=== PATIENT | female | born 1935 | race Caucasian/White ===

== ENCOUNTER 2017-11-06 17:17 | Inpatient (IN) | payer OTHER ==
[~2017-11-06] VITALS: Ht 157.5 cm; Wt 51.2 kg
[~2017-11-06 17:17] MED LIST: CARBAMAZEPINE200 MG PO; PRILOSEC OTC20 MG PO
[2017-11-06 18:07] LABS: HEMATOCRIT 42.8 % (36.0-46.0); HEMOGLOBIN 15.1 G/DL (11.9-15.5); MCH 28.6 PG (29.0-34.0); MCHC 35.3 G/DL (30.0-36.0); RBC DIS.WIDTH-SD 38.1 % (39-53); RED BLOOD COUNT 5.28 M/uL (3.80-5.20)
[2017-11-06 18:12] LABS: MCV 81.1 FL (83-99); PLATELET COUNT 444 K/uL (156-360); WHITE BLOOD COUNT 32.6 K/uL (4.1-10.2)
[2017-11-06 18:16] LABS: ALBUMIN 3.7 g/dL (3.2-4.8); CHLORIDE 88 mEq/L (99-109); POTASSIUM 3.4 mEq/L (3.7-5.4); SODIUM 122 mEq/L (136-147)
[2017-11-06 18:19] LABS: GLUCOSE 118 mg/dL (70-99); TOTAL PROTEIN 8.2 g/dL (6.4-8.3)
[2017-11-06 18:21] LABS: TOTAL BILIRUBIN 0.6 mg/dL (0.0-1.0)
[2017-11-06 18:22] LABS: ALKALINE PHOSPHATASE 126 IU/L (3-129); CREATININE 0.9 mg/dL (0.6-1.3); GFR ESTIMATE (CALCULATED) > 59 mL/min/
[2017-11-06 18:23] LABS: UREA NITROGEN (BUN) 28 mg/dL (9-23)
[2017-11-06 18:24] LABS: AST (GOT) 30 IU/L (2-34)
[2017-11-06 18:25] LABS: ALT (GPT) 19 IU/L (3-49)
[2017-11-06 21:01] LABS: APPEARANCE CLEAR ((CLEAR)); BILIRUBIN NEGATIVE; BLOOD SMALL; COLOR STRAW ((YELLOW)); GLUCOSE (STRIP) NEGATIVE; KETONES NEGATIVE; LEUKOCYTES TRACE; NITRITE NEGATIVE; PROTEIN (STRIP) NEGATIVE; SPECIFIC GRAVITY 1.012 (1.000-1.030); UROBILINOGEN 0.2 MG/DL (0.2-1.0)
[2017-11-06 21:07] LABS: BACTERIA NONE SEEN /HPF; EPITHELIAL CELLS RARE /HPF; MUCUS NONE SEEN /LPF; RED BLOOD CELLS 0-5 /HPF (0-5); UCUL ADDED? YES
[2017-11-06 21:24] LABS: LIPASE 165 U/L (1.0-51.0)
[2017-11-06] MEDS ORDERED: AMLODIPINE BESYL5 MG PO (23:15)
[2017-11-07] VITALS (7 sets, daily range): BP systolic 105–126; BP diastolic 55–68
[2017-11-07 00:45] LABS: C DIFF TOXIN NEGATIVE (NEGATIVE)
[2017-11-07 01:41] LABS: HEMATOCRIT 36.3 % (36.0-46.0); HEMOGLOBIN 13.1 G/DL (11.9-15.5); MCH 29.5 PG (29.0-34.0); MCHC 36.1 G/DL (30.0-36.0); MCV 81.8 FL (83-99); PLATELET COUNT 359 K/uL (156-360); RBC DIS.WIDTH-CV 12.9 % (11.8-14.6); RBC DIS.WIDTH-SD 38.5 % (39-53); RED BLOOD COUNT 4.44 M/uL (3.80-5.20)
[2017-11-07 10:57] LABS: CHLORIDE 99 MEQ/L (99-109); CREATININE 0.7 MG/DL (0.6-1.3); GFR ESTIMATE (CALCULATED) > 59 mL/min/; GLUCOSE 135 mg/dL (70-99); UREA NITROGEN (BUN) 15 mg/dL (9-23)
[2017-11-07 10:59] LABS: POTASSIUM 2.5 MEQ/L (3.7-5.4); SODIUM 130 MEQ/L (136-147)
[2017-11-07 19:24] LABS: LIPASE 166 U/L (1.0-51.0); MAGNESIUM 1.9 mg/dl (1.3-2.7)
[2017-11-08 03:53] VITALS: BP 103/56
[2017-11-08 06:47] LABS: ALBUMIN 2.5 G/DL (3.2-4.8); ALKALINE PHOSPHATASE 76 IU/L (3-129); ALT (GPT) 11 IU/L (3-49); AST (GOT) 15 IU/L (2-34); CHLORIDE 103 MEQ/L (99-109); CREATININE 0.5 MG/DL (0.6-1.3); GFR ESTIMATE (CALCULATED) > 59 mL/min/; POTASSIUM 2.9 MEQ/L (3.7-5.4); SODIUM 134 MEQ/L (136-147); TOTAL BILIRUBIN 0.4 MG/DL (0.0-1.0); TOTAL PROTEIN 4.8 G/DL (6.4-8.3); UREA NITROGEN (BUN) 7 mg/dL (9-23)
[2017-11-08 06:49] LABS: BASOPHIL (%) 0.6 % (0-1); BASOPHIL COUNT 0.1 K/uL (0-0.1); EOSINOPHIL (%) 0.8 % (0-5); EOSINOPHIL COUNT 0.1 K/uL (0-0.3); GLUCOSE 82 mg/dL (70-99); HEMATOCRIT 31.5 % (36.0-46.0); IMMATURE GRANULOCYTE (%) 4.1 % (0.0-0.7); LYMPHOCYTE (%) 7.9 % (15-42); LYMPHOCYTE COUNT 0.9 K/uL (1.0-2.8); MCH 29.1 PG (29.0-34.0); MCHC 35.2 G/DL (30.0-36.0); MCV 82.7 FL (83-99); MONOCYTE (%) 7.9 % (3-12); MONOCYTE COUNT 0.9 K/uL (0-0.8); NEUTROPHIL (%) 78.7 % (45-76); NEUTROPHIL COUNT 8.5 K/uL (1.8-6.4); PLATELET COUNT 295 K/uL (156-360); RBC DIS.WIDTH-CV 13.3 % (11.8-14.6); RBC DIS.WIDTH-SD 40.2 % (39-53); RED BLOOD COUNT 3.81 M/uL (3.80-5.20); WHITE BLOOD COUNT 10.9 K/uL (4.1-10.2)
[2017-11-08 07:02] VITALS: BP 110/63
[2017-11-08 07:02] LABS: HEMOGLOBIN 11.1 G/DL (11.9-15.5)
[2017-11-08 09:53] LABS: HDL CHOLESTEROL 41 MG/DL (Desirable>=50); LDL CHOLESTEROL 38 mg/dL (Desirable<100); NON-HDL CHOLESTEROL 46 mg/dL (Desirable<160); TOTAL CHOLESTEROL 87 mg/dL (Desirable<200); TRIGLYCERIDES 41 MG/DL (Normal: <150)
[2017-11-08 10:33] LABS: Estimated Average Glucose 126 mg/dL (70-123)
[2017-11-08 11:11] VITALS: BP 118/62
[2017-11-08 11:12] LABS: LIPASE 102 U/L (1.0-51.0)
[2017-11-08 15:10] LABS: CHLORIDE 102 MEQ/L (99-109); CREATININE 0.6 MG/DL (0.6-1.3); GFR ESTIMATE (CALCULATED) > 59 mL/min/; POTASSIUM 3.4 MEQ/L (3.7-5.4); SODIUM 133 MEQ/L (136-147); UREA NITROGEN (BUN) 6 mg/dL (9-23)
[2017-11-08 15:11] LABS: GLUCOSE 145 mg/dL (70-99)
[2017-11-08 16:01] VITALS: BP 124/66
[2017-11-08 19:13] VITALS: BP 113/65
[2017-11-08 23:38] LABS: APPEARANCE CLEAR ((CLEAR)); BILIRUBIN NEGATIVE; BLOOD NEGATIVE; COLOR STRAW ((YELLOW)); GLUCOSE (STRIP) NEGATIVE; KETONES NEGATIVE; LEUKOCYTES TRACE; NITRITE NEGATIVE; PROTEIN (STRIP) NEGATIVE; SPECIFIC GRAVITY 1.002 (1.000-1.030); UROBILINOGEN 0.2 MG/DL (0.2-1.0)
[2017-11-08 23:43] LABS: BACTERIA NONE SEEN /HPF; EPITHELIAL CELLS RARE /HPF; MUCUS NONE SEEN /LPF; RED BLOOD CELLS 0-5 /HPF (0-5); UCUL ADDED? NO; WHITE BLOOD CELLS 0-5 /HPF (0-5)
[2017-11-08 23:58] VITALS: BP 129/69
[2017-11-09 04:03] VITALS: BP 119/65
[2017-11-09 07:05] VITALS: BP 122/68
[2017-11-09 07:16] LABS: BASOPHIL (%) 0.4 % (0-1); EOSINOPHIL COUNT 0.1 K/uL (0-0.3); HEMATOCRIT 32.6 % (36.0-46.0); HEMOGLOBIN 11.1 G/DL (11.9-15.5); IMMATURE GRANULOCYTE (%) 2.8 % (0.0-0.7); LYMPHOCYTE (%) 11.1 % (15-42); MCH 28.2 PG (29.0-34.0); MONOCYTE (%) 7.9 % (3-12); MONOCYTE COUNT 0.7 K/uL (0-0.8); NEUTROPHIL (%) 76.8 % (45-76); NEUTROPHIL COUNT 7.1 K/uL (1.8-6.4); PLATELET COUNT 312 K/uL (156-360); RBC DIS.WIDTH-CV 13.4 % (11.8-14.6); RBC DIS.WIDTH-SD 40.6 % (39-53); RED BLOOD COUNT 3.93 M/uL (3.80-5.20); WHITE BLOOD COUNT 9.3 K/uL (4.1-10.2)
[2017-11-09 07:22] LABS: ALBUMIN 2.6 G/DL (3.2-4.8); ALKALINE PHOSPHATASE 74 IU/L (3-129); ALT (GPT) 12 IU/L (3-49); AST (GOT) 19 IU/L (2-34); CHLORIDE 101 MEQ/L (99-109); CREATININE 0.5 MG/DL (0.6-1.3); GFR ESTIMATE (CALCULATED) > 59 mL/min/; POTASSIUM 2.9 MEQ/L (3.7-5.4); SODIUM 135 MEQ/L (136-147); TOTAL BILIRUBIN 0.4 MG/DL (0.0-1.0); TOTAL PROTEIN 5.2 G/DL (6.4-8.3); UREA NITROGEN (BUN) 3 mg/dL (9-23)
[2017-11-09 07:28] LABS: GLUCOSE 82 mg/dL (70-99)
[2017-11-09 10:43] LABS: LIPASE 127 U/L (1.0-51.0)
[2017-11-09 12:05] VITALS: BP 104/59
[2017-11-09 15:37] VITALS: BP 112/70
[2017-11-09 19:33] VITALS: BP 130/65
[2017-11-09 22:56] VITALS: BP 125/69
[2017-11-10 03:26] VITALS: BP 131/63
[2017-11-10 05:50] LABS: BASOPHIL (%) 0.6 % (0-1); EOSINOPHIL (%) 2.1 % (0-5); EOSINOPHIL COUNT 0.1 K/uL (0-0.3); HEMATOCRIT 32.1 % (36.0-46.0); HEMOGLOBIN 10.9 G/DL (11.9-15.5); IMMATURE GRANULOCYTE (%) 1.9 % (0.0-0.7); LYMPHOCYTE (%) 16.8 % (15-42); LYMPHOCYTE COUNT 1.1 K/uL (1.0-2.8); MCH 28.5 PG (29.0-34.0); MONOCYTE (%) 9.9 % (3-12); MONOCYTE COUNT 0.7 K/uL (0-0.8); NEUTROPHIL (%) 68.7 % (45-76); NEUTROPHIL COUNT 4.7 K/uL (1.8-6.4); PLATELET COUNT 286 K/uL (156-360); RBC DIS.WIDTH-CV 13.9 % (11.8-14.6); RBC DIS.WIDTH-SD 42.6 % (39-53); RED BLOOD COUNT 3.82 M/uL (3.80-5.20); WHITE BLOOD COUNT 6.8 K/uL (4.1-10.2)
[2017-11-10 06:17] LABS: ALBUMIN 2.4 G/DL (3.2-4.8); ALKALINE PHOSPHATASE 75 IU/L (3-129); ALT (GPT) 11 IU/L (3-49); AST (GOT) 15 IU/L (2-34); CHLORIDE 104 MEQ/L (99-109); CREATININE 0.6 MG/DL (0.6-1.3); GFR ESTIMATE (CALCULATED) > 59 mL/min/; GLUCOSE 85 mg/dL (70-99); POTASSIUM 4.1 MEQ/L (3.7-5.4); SODIUM 136 MEQ/L (136-147); TOTAL BILIRUBIN 0.3 MG/DL (0.0-1.0); TOTAL PROTEIN 4.6 G/DL (6.4-8.3); UREA NITROGEN (BUN) 8 mg/dL (9-23)
[2017-11-10 07:02] VITALS: BP 126/64
[2017-11-10 11:50] VITALS: BP 127/73
[2017-11-10] MEDS ORDERED: BENTYL20 MG PO (15:12)
[2017-11-10] MEDS ORDERED: METRONIDAZOLE500 MG PO (15:13)
[2017-11-10] MEDS ORDERED: ASPIR-LOW81 MG PO (15:13)
== END 2017-11-10 17:06 | DRG 392 ==
LOC: EME 17:17 → 2EAST 22:26 → ENRESERV 22:26 → EDOF 22:26 → ENRESERV 23:45 → 2EAST 11-07 05:54
PROVIDERS: Hospitalist; Physician Assistant; Physician Assistant Medical
DX: K52.9 Noninfective gastroenteritis and colitis, unspecified (principal); E87.1 Hypo-osmolality and hyponatremia; E86.0 Dehydration; E87.6 Hypokalemia; K21.9 Gastro-esophageal reflux disease without esophagitis; Z90.49 Acquired absence of other specified parts of digestive tract
CPT/HCPCS: 70450; 74177; 80048; 80048 91; 80053; 80061; 81003; 83036; 83605; 83690; 83735; 85025; 85027; 87040; 87077; 87086; 87177; 87186; 87329; 87493; 87502; 99281; 99285; J0744; J1644; J2405; J3480; J7030; J7040; S0028; S0030